=== PATIENT | male | born 1990 | race Caucasian/White ===

== ENCOUNTER 2019-01-07 09:01 | Observation (INO) | payer BC, OTHER ==
[2019-01-07] MEDS ORDERED: Sodium Chloride 0.9% 1000 ML 1,000 ML IV STA (09:08)
[2019-01-07] MEDS ORDERED: Sodium Chloride 0.9% 1000 ML 1,000 ML ONE (09:14)
[2019-01-07 09:34] LABS: BASOPHIL % 0.5 % (0.0-0.4); Basophil (Absolute #) 0.03 (0-0.4); Eosinophil % 1.1 % (0.00-5.0); Eosinophil (Absolute #) 0.07 (0-0.5); Granulocyte Absolute (ANC) 4.26 (1.4-6.9); Granulocytes % 69.1 % (36.0-66.0); Hematocrit 43.8 % (42-50); Hemoglobin 14.7 gm/dl (12.5-18.0); Lymphocyte (Absolute #) 0.91 (1.0-4.6); Lymphocytes % 14.7 % (24.0-44.0); Mean Cell Volume 87.4 fl (78-100); Mean Corpuscular Hemoglobin 29.3 pg (26-32); Mean Corpuscular Hgb Concent. 33.6 g/dl (32-36); Mean Platelet Volume 9.9 fl (6-9.5); Monocytes % 14.6 % (0.0-12.0); Platelet Count 216 K/mm3 (150-450); Red Blood Count 5.01 M/mm3 (4.1-5.6); White Blood Count 6.2 K/mm3 (4.0-10.5)
--- NOTE | 2019-01-07 09:37 | XRAY ---
Indication: Confusion. Altered mental status. Multiple contiguous axial images obtained through the head without contrast. Comparison: None. Normal appearing brain parenchyma, ventricles, and bony calvarium. Paranasal sinuses and mastoid air cells are clear. Impression:. Normal CT head without contrast exam. CT DI 67.22
--- NOTE | 2019-01-07 09:40 | XRAY ---
Indication: Cough. Comparison: None Portable chest demonstrates normal heart, lungs, and bony thorax.
[2019-01-07 09:43] LABS: ALBUMIN 4.5 g/dL (3.5-5.0); ALKALINE PHOSPHATASE 67 U/L (38-126); ANION GAP 14.8 MEQ/L (5-15); BLOOD UREA NITROGEN 20 mg/dL (9-20); CHLORIDE 103 mmol/L (98-107); Calcium 9.7 mg/dL (8.4-10.2); Carbon Dioxide 26 mmol/L (22-30); Creatinine 1 1.02 mg/dL (0.66-1.25); Glucose 91 mg/dL (74-106); SGOT/AST 26 U/L (17-59); SGPT/ALT 28 U/L (0-50); SODIUM 140 mmol/L (137-145); Total Protein 7.9 g/dL (6.3-8.2)
[2019-01-07 09:44] LABS: A-aADO2 13; ABG HEMOGLOBIN 14.9; ABG SITE LEFT BRACHIAL; ARTERIAL BLD GAS O2 SATURATION 98.7 % (95-100); ARTERIAL BLOOD GAS BASE EXCESS 2.6 (-2.0-2.0); ARTERIAL BLOOD GAS FIO2 21 %; ARTERIAL BLOOD GAS PCO2 37 mmHg (35-45); ARTERIAL BLOOD GAS PO2 90 mmHg (75-100); ARTERIAL BLOOD GAS pH 7.46 (7.35-7.45); CARBOXYHEMOGLOBIN 1.7 % THgb (0.0-6.9); HCO3- 26.3 (22-28); HGB O2 SAT 95.6 g/dF (94-100); Methhemoglobin 1.4 % (1.4-1.5); paO2 pAO1 0.87
[2019-01-07 09:53] LABS: ETHYL ALCOHOL < 10 mg/dL (0-10)
[2019-01-07 09:56] VITALS: O2SAT 99
[2019-01-07 10:27] LABS: Appearance CLEAR (CLEAR); Bilirubin NEGATIVE (NEGATIVE); Blood NEGATIVE Ery/ul (0-5); Glucose NEGATIVE (NEGATIVE); Ketones NEGATIVE (NEGATIVE); Leukocyte Esterase NEGATIVE (NEGATIVE); Mucus SLIGHT /HPF (NEGATIVE); Nitrite NEGATIVE (NEGATIVE); Protein,Urine Dip NEGATIVE (Negative); Specific Gravity 1.023 (1.005-1.025); Urobilinogen NEGATIVE mg/dL (0-1)
[2019-01-07 10:35] LABS: RBC NONE SEEN /HPF (0-2)
[2019-01-07 11:18] LABS: Amphetamine,Urine NEGATIVE (NEGATIVE); Barbiturate,Urine NEGATIVE (NEGATIVE); Benzodiazepine,Urine NEGATIVE (NEGATIVE); Cocaine,Urine NEGATIVE (NEGATIVE); Methadone,Urine NEGATIVE (NEGATIVE); Opiate,Urine NEGATIVE (NEGATIVE); PCP,Urine NEGATIVE (NEGATIVE); THC,Urine NEGATIVE (NEGATIVE)
--- NOTE | 2019-01-07 11:18 | ERPHSYRPT ---
- History of Present Illness Time Seen by Provider: 01/07/19 09:13 Source: patient Exam Limitations: clinical condition Patient Subjective Stated Complaint: pt brought in from work today for not feeling well, he had wellness screening done, and then went to work and started feeling aches, hard to focus, no fever, eat breakfast this am, staff states he became seaty and achey, they gave him something to eat, Triage Nursing Assessment: pt alert, but slow to respond at times, he states he feels like hes in a fog, skin w/d/p, no edema, abd soft, he states he did not get exposed to anything. Physician History: PATIENT EMPLOYED IN DIETARY DEPARTMENT AT [employer], DEVELOPED ACUTE ONSET OF DIAPHORESIS, DIFFICULTY CONCENTRATING, FOCUSING 1 HOUR PRIOR TO ARRIVAL. DENIES EXPOSURE OR CONTAMINANTS. DENIES HEADACHE, BLURRED VISION, FOCAL NUMBNESS, TINGLING OR WEAKNESS IN EXTREMITIES, NAUSEA, EMESIS, CHEST OR ABDOMINAL PAIN. Timing/Duration: today Severity: moderate Baseline/Normal Cognition: alert oriented x 3 Current Cognition: alert oriented x 3 Baseline Gait: walks w/o assistance Associated Symptoms: confusion Allergies/Adverse Reactions: No Known Drug Allergies Allergy (Unverified 01/07/19 09:09) Home Medications: Phentermine Resin [Ionamin] 15 mg DAILY 01/07/19 [History] Hx Tetanus, Diphtheria Vaccination/Date Given: Yes Hx Influenza Vaccination/Date Given: No Hx Pneumococcal Vaccination/Date Given: No Immunizations Up to Date: Yes - Review of Systems Constitutional: No Symptoms, No Fever, No Chills Eyes: No Symptoms Ears, Nose, & Throat: No Symptoms Respiratory: No Symptoms, No Cough, No Dyspnea Cardiac: No Symptoms, No Chest Pain, No Edema, No Syncope Abdominal/Gastrointestinal: No Symptoms, No Abdominal Pain, No Nausea, No Vomiting, No Diarrhea Genitourinary Symptoms: No Symptoms, No Dysuria Musculoskeletal: No Symptoms, No Back Pain, No Neck Pain Skin: No Rash Neurological: Other (SLOW TO ANSWER QUESTIONS), No Dizziness, No Focal Weakness , No Sensory Changes Psychological: No Symptoms Endocrine: No Symptoms All Other Systems: Reviewed and Negative - Past Medical History Pertinent Past Medical History: No - Past Surgical History Past Surgical History: Yes Other Surgical History: wisdom - Social History Smoking Status: Never smoker Exposure to second hand smoke: No Drug Use: none Patient Lives Alone: No - Nursing Vital Signs Nursing Vital Signs: Initial Vital Signs Respiratory Rate 22 01/07/19 09:02 Pain Scale Pain Intensity 4 - Physical Exam General Appearance: no apparent distress, alert Eye Exam: bilateral eye: PERRL, EOMI Ears, Nose, Throat Exam: normal ENT inspection, moist mucous membranes Neck Exam: normal inspection, non-tender, supple Respiratory: normal breath sounds, lungs clear, airway intact, No respiratory distress Cardiovascular: regular rate/rhythm, No edema Gastrointestinal: soft, No tenderness, No distention Back Exam: normal inspection Extremity Exam: normal inspection, No pedal edema Peripheral Pulses: carotid (R): 2+, carotid (L): 2+, femoral (R): 2+, femoral (L ): 2+, dorsalis-pedis (R): 2+, dorsalis-pedis (L): 2+ Mental Status: alert, oriented x 3, 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 midline Coordination/Gait: normal finger to nose, normal gait Motor/Sensory: no motor deficit, no sensory deficit DTR: bicep (R): 2+, bicep (L): 2+, tricep (R): 2+, tricep (L): 2+, knee (R): 2+ , knee (L): 2+, ankle (R): 2+, ankle (L): 2+ Skin Exam: normal color, warm, dry, No rash SpO2 Interpretation: normal SpO2: 99 O2 Delivery: Room Air - Course EKG Interpreted by Me: RATE, Sinus Rhythm, NORMAL AXIS - Radiology Exams Chest X-ray Interpretation: Reviewed by me, Negative, No Infiltrates - CT Exams Head CT Interpretation: Discussed w/radiologist, No/Intracranial Hemorrhag Ordered Tests: Active Orders 24 hr Category Date Time Status Clean Catch Urine Specimen STAT Care 01/07/19 09:08 Active EKG-ER Only STAT Care 01/07/19 09:10 Active IV Insertion STAT Care 01/07/19 09:08 Active CHEST 1 VIEW (PORTABLE) Stat Exams 01/07/19 09:09 Completed HEAD WITHOUT CONTRAST [CT] Stat Exams 01/07/19 09:09 Completed ARTERIAL BLOOD GASES Stat Lab 01/07/19 09:42 Completed CBC W DIFF Stat Lab 01/07/19 09:30 Completed CMP Stat Lab 01/07/19 09:30 Completed ETHYL ALCOHOL Stat Lab 01/07/19 09:30 Completed Lactic Acid Stat Lab 01/07/19 09:42 Completed MAGNESIUM Stat Lab 01/07/19 09:30 Completed SED RATE [Erythrocyte Sedimentation Rate] Stat Lab 01/07/19 09:30 Completed UA W/RFX UR CULTURE Stat Lab 01/07/19 09:54 Completed Urine Triage Profile Stat Lab 01/07/19 09:54 Completed Transfer Order Routine Transfer 01/07/19 Ordered Medication Summary Discontinued Medications Generic Name Dose Route Start Last Admin Trade Name Rebecca PRN Reason Stop Dose Admin Sodium Chloride 1,000 mls @ 500 mls/hr 01/07/19 09:08 01/07/19 11:31 Sodium Chloride 0.9% 1000 Ml IV 01/07/19 11:07 Infused .Q2H STA Infusion Sodium Chloride Confirm 01/07/19 09:14 Sodium Chloride 0.9% 1000 Ml Administered 01/07/19 09:15 Dose 1,000 mls @ ud .ROUTE .STK-MED ONE Lab/Rad Data: Laboratory Result Diagrams 01/07/19 09:30 01/07/19 09:30 Laboratory Results 01/07/19 01/07/19 01/07/19 Range/Units 09:54 09:54 09:42 WBC (4.0-10.5) K/mm3 RBC (4.1-5.6) M/mm3 Hgb (12.5-18.0) gm/dl Hct (42-50) % MCV (78-100) fl MCH (26-32) pg MCHC (32-36) g/dl RDW (11.5-14.0) % Plt Count (150-450) K/mm3 MPV (6-9.5) fl Gran % (36.0-66.0) % Eos # (Auto) (0-0.5) Absolute Lymphs (auto) (1.0-4.6) Absolute Monos (auto) (0.0-1.3) Lymphocytes % (24.0-44.0) % Monocytes % (0.0-12.0) % Eosinophils % (0.00-5.0) % Basophils % (0.0-0.4) % Absolute Granulocytes (1.4-6.9) Basophils # (0-0.4) ESR (0-15) mm/hr Puncture Site pCO2 (35-45) mmHg pO2 (75-100) mmHg Base Excess (-2.0-2.0) O2 Saturation (94-100) g/dF ABG pH (7.35-7.45) ABG HCO3 (22-28) ABG O2 Sat (Measured) (95-100) % Tyler Test A-a Gradient a/A Ratio Hemoglobin Carboxyhemoglobin (0.0-6.9) % THgb Methemoglobin (1.4-1.5) % Temperature C POC O2 Flow Rate % Sodium (137-145) mmol/L Potassium (3.5-5.1) mmol/L Chloride (98-107) mmol/L Carbon Dioxide (22-30) mmol/L Anion Gap (5-15) MEQ/L BUN (9-20) mg/dL Creatinine (0.66-1.25) mg/dL Estimated GFR ML/MIN Glucose (74-106) mg/dL Lactic Acid 0.5 (0.4-2.0) Calcium (8.4-10.2) mg/dL Magnesium (1.6-2.3) mg/dL Total Bilirubin (0.2-1.3) mg/dL AST (17-59) U/L ALT (0-50) U/L Alkaline Phosphatase (38-126) U/L Serum Total Protein (6.3-8.2) g/dL Albumin (3.5-5.0) g/dL Urine Color YELLOW (YELLOW) Urine Appearance CLEAR (CLEAR) Urine pH 6.0 (5-6) Ur Specific [place] 1.023 (1.005-1.025) Urine Protein NEGATIVE (Negative) Urine Ketones NEGATIVE (NEGATIVE) Urine Blood NEGATIVE (0-5) Siddharth/ul Urine Nitrite NEGATIVE (NEGATIVE) Urine Bilirubin NEGATIVE (NEGATIVE) Urine Urobilinogen NEGATIVE (0-1) mg/dL Ur Leukocyte Esterase NEGATIVE (NEGATIVE) Urine WBC (Auto) NONE (0-5) /HPF Urine RBC (Auto) NONE SEEN (0-2) /HPF U Epithel Cells (Auto) NONE (FEW) /HPF Urine Bacteria (Auto) NONE (NEGATIVE) /HPF Urine Mucus (Auto) SLIGHT (NEGATIVE) /HPF Urine Culture Reflexed NO (NO) Urine Glucose NEGATIVE (NEGATIVE) mg/dL Urine Opiates Level NEGATIVE (NEGATIVE) Ur Methadone NEGATIVE (NEGATIVE) Urine Barbiturates NEGATIVE (NEGATIVE) Ur Phencyclidine (PCP) NEGATIVE (NEGATIVE) Urine Amphetamine NEGATIVE (NEGATIVE) U Benzodiazepine Level NEGATIVE (NEGATIVE) Urine Cocaine NEGATIVE (NEGATIVE) Urine Marijuana (THC) NEGATIVE (NEGATIVE) Ethyl Alcohol (0-10) mg/dL 01/07/19 01/07/19 01/07/19 Range/Units 09:42 09:30 09:30 WBC (4.0-10.5) K/mm3 RBC (4.1-5.6) M/mm3 Hgb (12.5-18.0) gm/dl Hct (42-50) % MCV (78-100) fl MCH (26-32) pg MCHC (32-36) g/dl RDW (11.5-14.0) % Plt Count (150-450) K/mm3 MPV (6-9.5) fl Gran % (36.0-66.0) % Eos # (Auto) (0-0.5) Absolute Lymphs (auto) (1.0-4.6) Absolute Monos (auto) (0.0-1.3) Lymphocytes % (24.0-44.0) % Monocytes % (0.0-12.0) % Eosinophils % (0.00-5.0) % Basophils % (0.0-0.4) % Absolute Granulocytes (1.4-6.9) Basophils # (0-0.4) ESR 11 (0-15) mm/hr Puncture Site LEFT BRACHIAL pCO2 37 (35-45) mmHg pO2 90 (75-100) mmHg Base Excess 2.6 H (-2.0-2.0) O2 Saturation 95.6 (94-100) g/dF ABG pH 7.46 H (7.35-7.45) ABG HCO3 26.3 (22-28) ABG O2 Sat (Measured) 98.7 (95-100) % Tyler Test NOT APPLICABLE A-a Gradient 13 a/A Ratio 0.87 Hemoglobin 14.9 Carboxyhemoglobin 1.7 (0.0-6.9) % THgb Methemoglobin 1.4 (1.4-1.5) % Temperature 37.0 C POC O2 Flow Rate 21 % Sodium (137-145) mmol/L Potassium 4.0 (3.5-5.1) mmol/L Chloride (98-107) mmol/L Carbon Dioxide (22-30) mmol/L Anion Gap (5-15) MEQ/L BUN (9-20) mg/dL Creatinine (0.66-1.25) mg/dL Estimated GFR ML/MIN Glucose (74-106) mg/dL Lactic Acid (0.4-2.0) Calcium (8.4-10.2) mg/dL Magnesium 1.9 (1.6-2.3) mg/dL Total Bilirubin (0.2-1.3) mg/dL AST (17-59) U/L ALT (0-50) U/L Alkaline Phosphatase (38-126) U/L Serum Total Protein (6.3-8.2) g/dL Albumin (3.5-5.0) g/dL Urine Color (YELLOW) Urine Appearance (CLEAR) Urine pH (5-6) Ur Specific [place] (1.005-1.025) Urine Protein (Negative) Urine Ketones (NEGATIVE) Urine Blood (0-5) Siddharth/ul Urine Nitrite (NEGATIVE) Urine Bilirubin (NEGATIVE) Urine Urobilinogen (0-1) mg/dL Ur Leukocyte Esterase (NEGATIVE) Urine WBC (Auto) (0-5) /HPF Urine RBC (Auto) (0-2) /HPF U Epithel Cells (Auto) (FEW) /HPF Urine Bacteria (Auto) (NEGATIVE) /HPF Urine Mucus (Auto) (NEGATIVE) /HPF Urine Culture Reflexed (NO) Urine Glucose (NEGATIVE) mg/dL Urine Opiates Level (NEGATIVE) Ur Methadone (NEGATIVE) Urine Barbiturates (NEGATIVE) Ur Phencyclidine (PCP) (NEGATIVE) Urine Amphetamine (NEGATIVE) U Benzodiazepine Level (NEGATIVE) Urine Cocaine (NEGATIVE) Urine Marijuana (THC) (NEGATIVE) Ethyl Alcohol (0-10) mg/dL 01/07/19 01/07/19 Range/Units 09:30 09:30 WBC 6.2 (4.0-10.5) K/mm3 RBC 5.01 (4.1-5.6) M/mm3 Hgb 14.7 (12.5-18.0) gm/dl Hct 43.8 (42-50) % MCV 87.4 (78-100) fl MCH 29.3 (26-32) pg MCHC 33.6 (32-36) g/dl RDW 13.0 (11.5-14.0) % Plt Count 216 (150-450) K/mm3 MPV 9.9 H (6-9.5) fl Gran % 69.1 H (36.0-66.0) % Eos # (Auto) 0.07 (0-0.5) Absolute Lymphs (auto) 0.91 L (1.0-4.6) Absolute Monos (auto) 0.90 (0.0-1.3) Lymphocytes % 14.7 L (24.0-44.0) % Monocytes % 14.6 H (0.0-12.0) % Eosinophils % 1.1 (0.00-5.0) % Basophils % 0.5 (0.0-0.4) % Absolute Granulocytes 4.26 (1.4-6.9) Basophils # 0.03 (0-0.4) ESR (0-15) mm/hr Puncture Site pCO2 (35-45) mmHg pO2 (75-100) mmHg Base Excess (-2.0-2.0) O2 Saturation (94-100) g/dF ABG pH (7.35-7.45) ABG HCO3 (22-28) ABG O2 Sat (Measured) (95-100) % Tyler Test A-a Gradient a/A Ratio Hemoglobin Carboxyhemoglobin (0.0-6.9) % THgb Methemoglobin (1.4-1.5) % Temperature C POC O2 Flow Rate % Sodium 140 (137-145) mmol/L Potassium 4.0 (3.5-5.1) mmol/L Chloride 103 (98-107) mmol/L Carbon Dioxide 26 (22-30) mmol/L Anion Gap 14.8 (5-15) MEQ/L BUN 20 (9-20) mg/dL Creatinine 1.02 (0.66-1.25) mg/dL Estimated GFR > 60.0 ML/MIN Glucose 91 (74-106) mg/dL Lactic Acid (0.4-2.0) Calcium 9.7 (8.4-10.2) mg/dL Magnesium (1.6-2.3) mg/dL Total Bilirubin 0.40 (0.2-1.3) mg/dL AST 26 (17-59) U/L ALT 28 (0-50) U/L Alkaline Phosphatase 67 (38-126) U/L Serum Total Protein 7.9 (6.3-8.2) g/dL Albumin 4.5 (3.5-5.0) g/dL Urine Color (YELLOW) Urine Appearance (CLEAR) Urine pH (5-6) Ur Specific [place] (1.005-1.025) Urine Protein (Negative) Urine Ketones (NEGATIVE) Urine Blood (0-5) Siddharth/ul Urine Nitrite (NEGATIVE) Urine Bilirubin (NEGATIVE) Urine Urobilinogen (0-1) mg/dL Ur Leukocyte Esterase (NEGATIVE) Urine WBC (Auto) (0-5) /HPF Urine RBC (Auto) (0-2) /HPF U Epithel Cells (Auto) (FEW) /HPF Urine Bacteria (Auto) (NEGATIVE) /HPF Urine Mucus (Auto) (NEGATIVE) /HPF Urine Culture Reflexed (NO) Urine Glucose (NEGATIVE) mg/dL Urine Opiates Level (NEGATIVE) Ur Methadone (NEGATIVE) Urine Barbiturates (NEGATIVE) Ur Phencyclidine (PCP) (NEGATIVE) Urine Amphetamine (NEGATIVE) U Benzodiazepine Level (NEGATIVE) Urine Cocaine (NEGATIVE) Urine Marijuana (THC) (NEGATIVE) Ethyl Alcohol < 10 (0-10) mg/dL - Progress Progress Note: 01/07/19 11:21 IV NORMAL SALINE 500ML/HR, DISCUSSED WITH NURSE CARING FOR PATIENT STATES HE MAY HAVE HAD AN EPISODE OF BEING POSTICTAL DURING HER INTERVIEW WITH PATIENT, Discussed with : Pratik (DISCUSSED WITH DR ROUSE AT 1115 FOR OBSERVATION) - Departure Departure Disposition: Observation Clinical Impression: ALTERED MENTAL STATUS Condition: Stable Critical Care Time: No Referrals: ALIYA ROUSE [Primary Care Provider] -
[2019-01-07] MEDS ORDERED: TYLENOL 325 MG PO PRN (11:54)
[2019-01-07] MEDS ORDERED: Sodium Chloride 0.9% 1000 ML 1,000 ML IV SCH (11:54)
[2019-01-07] MEDS ORDERED: MEDICATION INTERVENTION PO SCH (17:45)
[2019-01-07 23:43] VITALS: BP 141/65; PULSE 98
[2019-01-08] MEDS ORDERED: NON-FORMULARY ITEM (Phentermine Hcl [Adipex-P] 37.5 MG) PO SCH (10:00)
--- NOTE | 2019-01-19 08:26 | SSS ---
DISCHARGE DIAGNOSIS: ALTERED MENTAL STATUS. HISTORY: The patient is a 28 year-old white male patient who works at the [employer] alf. He was found outside the alf being somewhat confused and acting unusual for himself. They were concerned that he might be having a seizure or other problems and he was brought to the emergency room for further evaluation and management. The patient's confusional status had essentially cleared up shortly after he presented to the emergency room. He was admitted for observation for progression of change and tele-neurology consult. PHYSICAL EXAMINATION: Revealed a well-nourished, well-developed 28 year-old white male patient in no distress. His vital signs initially showed his temperature 98.0F with pulse 107, respiratory rate 22, blood pressure 171/87. O2 saturation 99%. HEENT: Normocephalic, atraumatic. Pupils equal round reactive to light. Extraocular movements intact. Oropharynx is pink and moist. NECK: Supple without lymphadenopathy, thyromegaly or JVD. CHEST: Clear to auscultation. HEART: Regular rate and rhythm without murmurs, rubs or gallops. ABDOMEN: Soft. No palpable masses. EXTREMITIES: Without cyanosis, clubbing or edema. NEUROLOGIC: The patient is alert and oriented x3. No focal deficits were noted. HOSPITAL COURSE: The patient did have tele-neurology consultation. He requested an EEG. He did have other studies with CT scan and blood work which were all essentially normal. The patient having cleared up and done well over ensuing several hours was felt to be ready for discharge on the morning of 01/08/2019. No specific cause was found for his confusional status at the time but he appeared to be totally back to normal with no reason to believe he would have recurrence of the problem. At this time he was allowed to be discharged home. Discharge plans for the patient to see me in the office within a week. He is allowed to return to work after another 48 hours of observation at home and we plan to send him to a local neurologist for further evaluation upon discharge home as an outpatient.
== END 2019-01-08 00:51 | disposition home or self-care (01) ==
LOC: ED 09:01 → MED SURG 11:51
PROVIDERS: ADMIT Family Medicine; ATTEND Family Medicine
DX: R41.82 Altered mental status, unspecified (principal); Z79.899 Other long term (current) drug therapy
CPT/HCPCS: 36415; 36600; 70450; 71045; 80053; 80307; 81001; 82375; 82803; 83605; 83735; 85025; 85652; 93005; 95812; 96360; 99285; G0378; Q3014; G0480